=== PATIENT | male | born 1955 | race Caucasian/White ===

== ENCOUNTER → 2019-04-13 | Day surgery (SDC) | payer MEDICARE, MEDICAID ==
[~2019-04-13] VITALS: Ht 172.7 cm; Wt 78.9 kg
[~2019-04-13] MED LIST: PERCOCET 325 MG1 TA2 PO; VITAMIN D50000 I3 PO; ZOFRAN4 MG PO
[2019-04-13 07:08] VITALS: BP 144/65
[2019-04-13 08:10] VITALS: BP 84/57
[2019-04-13 08:23] VITALS: BP 102/62
[2019-04-13 08:38] VITALS: BP 115/67
== END ==
LOC: SDC 04-11 09:30
DX: Z12.11 Encounter for screening for malignant neoplasm of colon (principal); K57.30 Diverticulosis of large intestine without perforation or abscess without bleeding; F17.210 Nicotine dependence, cigarettes, uncomplicated; D12.5 Benign neoplasm of sigmoid colon

== ENCOUNTER → 2019-09-08 | Outpatient (CLI) | payer MEDICARE, MEDICAID ==
[~2019-09-08] MED LIST changes: +AVPAK AZITHROM250 MG PO; +TAMIFLU 75MG CA75 MG PO; +TESSALON PERLE100 MG PO
== END | disposition home or self-care (01) ==
LOC: US 10:29
DX: K76.0 Fatty (change of) liver, not elsewhere classified (principal)

== ENCOUNTER 2019-09-11 08:33 | Emergency (ER) | payer MEDICARE, MEDICAID ==
[~2019-09-11] VITALS: Ht 172.7 cm; Wt 81.6 kg
[~2019-09-11 08:33] MED LIST changes: -AVPAK AZITHROM250 MG PO; -TAMIFLU 75MG CA75 MG PO; -TESSALON PERLE100 MG PO
[2019-09-11 09:39] LABS: BASO % 0.1 % (0.0-1.0); EOS % 0.3 % (1.0-4.0); HEMATOCRIT 42.2 % (42.0-52.0); HEMOGLOBIN 14.3 g/dl (14.0-18.0); LYMPH # 0.4 10*3/uL (1.3-4.4); LYMPH % 5.1 % (27.0-41.0); MEAN CELL VOLUME 97.5 fl (80.0-94.0); MEAN CORPUSCULAR HGB CONC 33.9 g/dl (33.0-37.0); MEAN PLATELET VOLUME 10.8 fl (9.6-12.3); MONO # 0.6 10*3/uL (0.1-1.0); MONO % 9.2 % (3.0-9.0); NEUT # 5.9 10*3/uL (2.3-7.9); PLATELET COUNT AUTOMATED 176 10*3/uL (130-400); RED BLOOD COUNT 4.33 10*6/uL (4.50-5.90); RED CELL DISTRI WIDTH 13.1 % (0-14.5); WHITE BLOOD COUNT 6.9 10*3/uL (4.8-10.8)
[2019-09-11 09:47] LABS: ACT PARTIAL THROMBO TIME 27.9 SECONDS (20.0-32.1)
[2019-09-11 09:53] LABS: ALBUMIN 3.7 gm/dl (3.1-4.5); ALKALINE PHOSPHATASE 131 U/L (45-117); BUN 17 mg/dl (7-24); CHLORIDE 105 mmol/L (98-107); CREATININE 1.21 mg/dL (0.70-1.30); POTASSIUM 3.8 mmol/L (3.5-5.1); SGOT/AST 31 IU/L (3-35); SGPT/ALT 57 U/L (12-78); SODIUM 138 mmol/L (136-145); TOTAL PROTEIN 7.4 gm/dL (6.4-8.2)
[2019-09-11 09:57] LABS: TROPONIN I < 0.015 ng/ml (<0.045)
[2019-09-11] MEDS ORDERED: TAMIFLU 75MG CA75 MG PO (10:28)
[2019-09-11] MEDS ORDERED: TESSALON PERLE100 MG PO (10:28)
[2019-09-11] MEDS ORDERED: AVPAK AZITHROM250 MG PO (11:04)
== END 2019-09-11 10:35 | disposition home or self-care (01) ==
LOC: ED 08:33
PROVIDERS: Emergency Medicine
DX: J11.08 Influenza due to unidentified influenza virus with specified pneumonia (principal); J18.0 Bronchopneumonia, unspecified organism; F17.200 Nicotine dependence, unspecified, uncomplicated